=== PATIENT | female | born 1935 | race Asian ===

== ENCOUNTER 2019-05-09 19:19 | Inpatient (IN) | payer MEDICARE, OTHER ==
[~2019-05-09] VITALS: Ht 160 cm; Wt 38.8 kg
[2019-05-09] MEDS ORDERED: ACETAMINOPHEN 325MG TABLET PO ONE (20:45)
[2019-05-09] MEDS ORDERED: MORPHINE SULFATE 2 MG/ML CPJ (NOT FOR IM USE) IV ONE (21:45)
[2019-05-09 22:16] LABS: HEMATOCRIT. 28.9 % (36.0-48.0); HEMOGLOBIN. 9.8 g/dL (12.0-16.0); MEAN CORPUSCULAR HEMOGLOBIN 30.4 pg (28.0-32.0); MEAN CORPUSCULAR VOLUME 89.8 fL (81.0-99.0); MEAN PLATELET VOLUME 7.4 fl (7.4-10.4); PLATELET 277 x1000/uL (130-400); RED BLOOD CELL COUNT 3.22 mill/uL (4.2-5.4); RED CELL DISTRIBUTION WIDTH 14.9 % (11.6-14.6)
[2019-05-09 22:19] LABS: CHLORIDE 103 mEq/L (98-107)
[2019-05-09] MEDS ORDERED: CLONIDINE 0.1MG TABLET PO ONE (22:30)
[2019-05-09 22:33] LABS: PLATELET ESTIMATE NORMAL
[2019-05-09] MEDS ORDERED: POTASSIUM CHLORIDE 20MEQ TABLET SR PO ONE (23:45)
[2019-05-09] MEDS ORDERED: HYDRALAZINE 20MG/ML VIAL IV ONE (23:45)
[2019-05-10 00:59] VITALS: BP 145/67
[2019-05-10 04:00] VITALS: BP 132/68
[2019-05-10] MEDS ORDERED: HYDROCODONE/ACETAMINOPHEN 5/325MG TABLET PO PRN (05:15)
[2019-05-10] MEDS ORDERED: ACETAMINOPHEN 325MG TABLET PO PRN (05:15)
[2019-05-10 08:00] VITALS: BP 143/65
[2019-05-10] MEDS ORDERED: MAGNESIUM/ALUMINUM HYDROXIDE/SIMETHICONE 30ML UDC PO PRN (11:00)
[2019-05-10] MEDS ORDERED: IPRATROPIUM/ALBUTEROL 0.5-3(2.5)MG/3ML NEB NEB PRN (11:00)
[2019-05-10] MEDS ORDERED: DIPHENHYDRAMINE 50MG/ML VIAL IV PRN (11:00)
[2019-05-10] MEDS ORDERED: DOCUSATE SODIUM 100MG CAPSULE PO PRN (11:00)
[2019-05-10] MEDS ORDERED: POTASSIUM CHLORIDE 20MEQ TABLET SR PO NR (11:15)
[2019-05-10] MEDS: AMLODIPINE 2.5MG TABLET PO SCH (11:54)
[2019-05-10 12:00] VITALS: BP 158/72
[2019-05-10 12:47] LABS: BASOPHILS % 0.7 % (0.0-2.0); EOSINOPHILS % 0.3 % (0.0-5.0); HEMATOCRIT. 27.7 % (36.0-48.0); HEMOGLOBIN. 9.5 g/dL (12.0-16.0); LYMPHOCYTES % 9.8 % (20.0-50.0); MEAN CORPUSCULAR HEMOGLOBIN 30.8 pg (28.0-32.0); MEAN PLATELET VOLUME 7.8 fl (7.4-10.4); MONOCYTES % 5.3 % (2.0-8.0); NEUTROPHILS % 83.9 % (40.0-76.0); PLATELET 251 x1000/uL (130-400); RED BLOOD CELL COUNT 3.08 mill/uL (4.2-5.4); RED CELL DISTRIBUTION WIDTH 14.5 % (11.6-14.6)
[2019-05-10 13:00] LABS: CHLORIDE 107 mEq/L (98-107)
[2019-05-10 13:07] LABS: PHOSPHORUS 3.1 mg/dL (2.5-4.9)
[2019-05-10 16:00] VITALS: BP 146/66
[2019-05-10 18:19] LABS: CLARITY URINE CLOUDY (CLEAR); COLOR URINE YELLOW (YELLOW); KETONES URINE TRACE (NEGATIVE); LEUKOCYTE ESTERASE URINE 3+ (NEGATIVE); NITRITE URINE NEGATIVE (NEGATIVE); OCCULT BLOOD URINE 2+ (NEGATIVE); PROTEIN URINE 2+ (NEGATIVE); SPECIFIC GRAVITY URINE 1.013 (1.005-1.030); UROBILINOGEN URINE 0.2 E.U./dL (0.2-1.0)
[2019-05-10 20:00] VITALS: BP 154/64
[2019-05-11] VITALS: BP 166/84
[2019-05-11 00:07] LABS: PROTHROMBIN TIME 10.7 sec (9.6-11.0)
[2019-05-11] MEDS: CLONIDINE 0.1MG TABLET PO PRN (00:31)
[2019-05-11] MEDS: SODIUM CHLORIDE 0.9% 1,000 ML IV SCH (01:51)
[2019-05-11 04:00] VITALS: BP 146/70
[2019-05-11 07:42] LABS: BASOPHILS % 0.8 % (0.0-2.0); EOSINOPHILS % 1.3 % (0.0-5.0); HEMATOCRIT. 26.3 % (36.0-48.0); LYMPHOCYTES % 9.8 % (20.0-50.0); MEAN CORPUSCULAR HEMOGLOBIN 30.6 pg (28.0-32.0); MEAN CORPUSCULAR VOLUME 89.4 fL (81.0-99.0); MEAN PLATELET VOLUME 7.7 fl (7.4-10.4); MONOCYTES % 6.4 % (2.0-8.0); NEUTROPHILS % 81.7 % (40.0-76.0); PLATELET 231 x1000/uL (130-400); RED BLOOD CELL COUNT 2.95 mill/uL (4.2-5.4)
[2019-05-11 08:10] LABS: CHLORIDE 107 mEq/L (98-107)
[2019-05-11 08:18] LABS: PHOSPHORUS 2.9 mg/dL (2.5-4.9)
[2019-05-11] MEDS: AMLODIPINE 2.5MG TABLET PO SCH (10:04)
[2019-05-11] MEDS ORDERED: TRANEXAMIC ACID 1,000 MG in SODIUM CHLORIDE 0.9% 100 ML IV NR ×2 (12:00→13:00)
[2019-05-11] MEDS ORDERED: HYDRALAZINE 20MG/ML VIAL IV ONE (12:00)
[2019-05-11] MEDS ORDERED: HYDRALAZINE 10 MG in SODIUM CHLORIDE 0.9% 49.5 ML IV NR (12:30)
[2019-05-11] MEDS ORDERED: ROPIVACAINE HCL 10MG/ML 20 ML VIAL EPI ONE (13:37)
[2019-05-11] MEDS ORDERED: KETOROLAC 30MG/ML VIAL ONE (13:37)
[2019-05-11] MEDS ORDERED: EPINEPHRINE 1:1000 1 MG/ML AMP ONE (13:37)
[2019-05-11] MEDS ORDERED: BACITRACIN 50,000 UNITS/VIAL ONE (13:38)
[2019-05-11] MEDS ORDERED: VANCOMYCIN HCL 1 GM/VIAL ONE (13:38)
[2019-05-11] MEDS ORDERED: NORMAL SALINE 0.9% 10 ML SYR ONE (13:38)
[2019-05-11] MEDS ORDERED: CEFAZOLIN 1000MG PREMIX 50 ML IV SCH (14:33)
[2019-05-11] MEDS ORDERED: ONDANSETRON HCL 4MG/2ML INJ IV PRN (16:45)
[2019-05-11] MEDS ORDERED: HYDROMORPHONE HCL/PF 2MG/ML CPJ IV PRN (16:45)
[2019-05-11] MEDS ORDERED: KETOROLAC 30MG/ML VIAL IV PRN (16:45)
[2019-05-11] MEDS ORDERED: LABETALOL 5MG/ML SYR 20 MG/4 ML SYRINGE IV PRN (16:45)
[2019-05-11] MEDS ORDERED: MEPERIDINE HCL/PF 25MG/ML CPJ IV PRN (16:45)
[2019-05-11] MEDS: ASPIRIN 81MG TABLET PO SCH (17:00)
[2019-05-11 20:00] VITALS: BP 139/71
[2019-05-11] MEDS: CEFAZOLIN 1000MG PREMIX 50 ML IV SCH (23:07)
[2019-05-12] VITALS: BP 158/73
[2019-05-12 04:00] VITALS: BP 167/78
[2019-05-12] MEDS: CLONIDINE 0.1MG TABLET PO PRN (05:51)
[2019-05-12 07:05] LABS: HEMATOCRIT. 23.5 % (36.0-48.0); MEAN CORPUSCULAR HEMOGLOBIN 30.6 pg (28.0-32.0); MEAN CORPUSCULAR VOLUME 90.1 fL (81.0-99.0); MEAN PLATELET VOLUME 7.8 fl (7.4-10.4); PLATELET 212 x1000/uL (130-400); RED BLOOD CELL COUNT 2.61 mill/uL (4.2-5.4); RED CELL DISTRIBUTION WIDTH 14.7 % (11.6-14.6)
[2019-05-12] MEDS: SODIUM CHLORIDE 0.9% 1,000 ML IV SCH ×2 (07:46→17:20)
[2019-05-12] MEDS: CEFAZOLIN 1000MG PREMIX 50 ML IV SCH ×2 (07:51→15:53)
[2019-05-12 08:00] VITALS: BP 113/51
[2019-05-12] MEDS: ASPIRIN 81MG TABLET PO SCH ×2 (08:27→17:47)
[2019-05-12] MEDS: AMLODIPINE 2.5MG TABLET PO SCH (08:27)
[2019-05-12 08:34] LABS: PLATELET ESTIMATE NORMAL
[2019-05-12] MEDS: TRANEXAMIC ACID 1,000 MG/10 ML IV SCH (11:27)
[2019-05-12 12:00] VITALS: BP 127/58
[2019-05-12 16:00] VITALS: BP 143/56
[2019-05-12] MEDS ORDERED: HYDROCODONE/ACETAMINOPHEN 10/325MG TABLET PO PRN (16:47)
[2019-05-12] MEDS ORDERED: HYDROCODONE/ACETAMINOPHEN 5/325MG TABLET PO PRN (16:47)
[2019-05-12 20:00] VITALS: BP 143/69
[2019-05-13] VITALS: BP 149/69
[2019-05-13] MEDS: CEFAZOLIN 1000MG PREMIX 50 ML IV SCH ×3 (01:05→14:52)
[2019-05-13 04:00] VITALS: BP 149/63
[2019-05-13 07:08] LABS: BASOPHILS % 0.5 % (0.0-2.0); EOSINOPHILS % 0.7 % (0.0-5.0); HEMATOCRIT. 21.3 % (36.0-48.0); HEMOGLOBIN. 7.3 g/dL (12.0-16.0); LYMPHOCYTES % 14.9 % (20.0-50.0); MEAN CORPUSCULAR HEMOGLOBIN 31.2 pg (28.0-32.0); MEAN CORPUSCULAR VOLUME 90.7 fL (81.0-99.0); MEAN PLATELET VOLUME 7.9 fl (7.4-10.4); MONOCYTES % 8.2 % (2.0-8.0); NEUTROPHILS % 75.7 % (40.0-76.0); PLATELET 214 x1000/uL (130-400); RED BLOOD CELL COUNT 2.35 mill/uL (4.2-5.4); RED CELL DISTRIBUTION WIDTH 14.3 % (11.6-14.6)
[2019-05-13 07:26] LABS: CHLORIDE 108 mEq/L (98-107)
[2019-05-13 08:00] VITALS: BP 150/94
[2019-05-13] MEDS: AMLODIPINE 2.5MG TABLET PO SCH (09:21)
[2019-05-13] MEDS: ASPIRIN 81MG TABLET PO SCH (09:21)
[2019-05-13 12:00] VITALS: BP 133/68
[2019-05-13] MEDS: TRANEXAMIC ACID 1,000 MG/10 ML IV SCH (12:00)
[2019-05-13] MEDS ORDERED: POTASSIUM CHLORIDE 20MEQ TABLET SR PO SCH (12:15)
[2019-05-13 15:33] LABS: HEMATOCRIT 22.8 % (36.0-48.0); HEMOGLOBIN 7.9 g/dL (12.0-16.0)
[2019-05-13 16:00] VITALS: BP 126/59
[2019-05-13 16:47] VITALS: BP 126/59
[2019-05-14] MEDS ORDERED: AMLODIPINE 5MG TABLET PO SCH (09:00)
== END 2019-05-13 17:35 | DRG 470 ==
LOC: ER 19:19 → 6EST 22:13 → ENRESERV 23:08
PROVIDERS: ADMIT Family Medicine Adult Medicine; ATTEND Family Medicine Adult Medicine
PROC: 0SRB0JZ Replacement of Left Hip Joint with Synthetic Substitute, Open Approach (ICD-10-PCS; principal; 2019-05-11)
DX: S72.002A Fracture of unspecified part of neck of left femur, initial encounter for closed fracture (principal); E46 Unspecified protein-calorie malnutrition; E78.5 Hyperlipidemia, unspecified; I10 Essential (primary) hypertension; E87.6 Hypokalemia; J44.9 Chronic obstructive pulmonary disease, unspecified; D72.829 Elevated white blood cell count, unspecified; D64.9 Anemia, unspecified; R73.9 Hyperglycemia, unspecified; W18.39XA Other fall on same level, initial encounter; Y93.89 Activity, other specified; Z88.8 Allergy status to other drugs, medicaments and biological substances; Z86.79 Personal history of other diseases of the circulatory system; Y92.89 Other specified places as the place of occurrence of the external cause; Y99.8 Other external cause status
CPT/HCPCS: 36415; 71045; 73501; 73502; 73552; 76000; 80048; 81003; 83735; 84100; 84484; 85014; 85018; 86850; 86900; 88305; 88311; 93005; 93970; 97110; 97116; 97162; 99285; C1776; J0360; J0690; J1885; J2270; J2795; J3370; J3490; J7030; J7050; A4315

== ENCOUNTER 2019-05-13 17:33 | Inpatient (IN) | payer MEDICARE, OTHER ==
[~2019-05-13] VITALS: Ht 160 cm; Wt 38.6 kg
[2019-05-13 20:00] VITALS: BP 138/58
[2019-05-13] MEDS ORDERED: DIPHENHYDRAMINE 25MG CAPSULE PO PRN (20:30)
[2019-05-13] MEDS ORDERED: MAGNESIUM/ALUMINUM HYDROXIDE/SIMETHICONE 30ML UDC PO PRN (20:30)
[2019-05-13] MEDS ORDERED: HYDROCODONE/ACETAMINOPHEN 10/325MG TABLET PO PRN (20:30)
[2019-05-13] MEDS ORDERED: HYDROCODONE/ACETAMINOPHEN 5/325MG TABLET PO PRN (20:30)
[2019-05-13] MEDS ORDERED: ACETAMINOPHEN 325MG TABLET PO PRN (20:30)
[2019-05-13] MEDS ORDERED: IPRATROPIUM/ALBUTEROL 0.5-3(2.5)MG/3ML NEB HHN PRN (20:30)
[2019-05-13] MEDS ORDERED: CEFAZOLIN 1000MG PREMIX 50 ML IV SCH (22:30)
[2019-05-14] MEDS: SODIUM CHLORIDE 0.9% 1,000 ML IV SCH ×2 (00:33→12:36)
[2019-05-14 08:00] VITALS: BP 160/66
[2019-05-14] MEDS: ASPIRIN 81MG TABLET PO SCH ×2 (08:55→17:58)
[2019-05-14] MEDS: AMLODIPINE 2.5MG TABLET PO SCH (08:55)
[2019-05-14 09:29] LABS: BASOPHILS % 0.7 % (0.0-2.0); EOSINOPHILS % 1.9 % (0.0-5.0); HEMATOCRIT. 21.7 % (36.0-48.0); HEMOGLOBIN. 7.4 g/dL (12.0-16.0); LYMPHOCYTES % 13.3 % (20.0-50.0); MEAN CORPUSCULAR HEMOGLOBIN 30.7 pg (28.0-32.0); MEAN CORPUSCULAR VOLUME 89.6 fL (81.0-99.0); MEAN PLATELET VOLUME 7.5 fl (7.4-10.4); MONOCYTES % 7.2 % (2.0-8.0); NEUTROPHILS % 76.9 % (40.0-76.0); PLATELET 258 x1000/uL (130-400); RED BLOOD CELL COUNT 2.42 mill/uL (4.2-5.4); RED CELL DISTRIBUTION WIDTH 14.2 % (11.6-14.6)
[2019-05-14 09:38] LABS: CHLORIDE 109 mEq/L (98-107)
[2019-05-14] MEDS: DOCUSATE SODIUM 100MG CAPSULE PO PRN (11:31)
[2019-05-14] MEDS ORDERED: POTASSIUM CHLORIDE 20MEQ TABLET SR PO SCH (12:15)
[2019-05-14 14:31] LABS: CLARITY URINE CLEAR (CLEAR); COLOR URINE YELLOW (YELLOW); KETONES URINE NEGATIVE (NEGATIVE); LEUKOCYTE ESTERASE URINE TRACE (NEGATIVE); NITRITE URINE NEGATIVE (NEGATIVE); OCCULT BLOOD URINE 2+ (NEGATIVE); PROTEIN URINE 1+ (NEGATIVE); SPECIFIC GRAVITY URINE 1.008 (1.005-1.030); UROBILINOGEN URINE 0.2 E.U./dL (0.2-1.0)
[2019-05-14] MEDS: LACTULOSE 20G/30ML UDC PO SCH ×3 (15:46→21:00)
[2019-05-14 20:00] VITALS: BP 150/71
[2019-05-14 22:03] LABS: CHLORIDE 108 mEq/L (98-107)
[2019-05-14 22:04] LABS: BASOPHILS % 0.6 % (0.0-2.0); EOSINOPHILS % 2.1 % (0.0-5.0); HEMATOCRIT. 24.2 % (36.0-48.0); HEMOGLOBIN. 8.4 g/dL (12.0-16.0); LYMPHOCYTES % 11.1 % (20.0-50.0); MEAN CORPUSCULAR HEMOGLOBIN 30.8 pg (28.0-32.0); MEAN CORPUSCULAR VOLUME 89.1 fL (81.0-99.0); MEAN PLATELET VOLUME 7.4 fl (7.4-10.4); MONOCYTES % 7.1 % (2.0-8.0); NEUTROPHILS % 79.1 % (40.0-76.0); PLATELET 357 x1000/uL (130-400); RED BLOOD CELL COUNT 2.72 mill/uL (4.2-5.4); RED CELL DISTRIBUTION WIDTH 14.2 % (11.6-14.6)
[2019-05-15] MEDS: SODIUM CHLORIDE 0.9% 1,000 ML IV SCH (04:49)
[2019-05-15 08:00] VITALS: BP 133/68
[2019-05-15] MEDS: ASPIRIN 81MG TABLET PO SCH ×2 (08:39→16:28)
[2019-05-15] MEDS: AMLODIPINE 2.5MG TABLET PO SCH (08:39)
[2019-05-15 09:06] LABS: BASOPHILS % 0.6 % (0.0-2.0); EOSINOPHILS % 1.5 % (0.0-5.0); HEMATOCRIT. 22.3 % (36.0-48.0); HEMOGLOBIN. 7.8 g/dL (12.0-16.0); LYMPHOCYTES % 13.1 % (20.0-50.0); MEAN CORPUSCULAR HEMOGLOBIN 31.2 pg (28.0-32.0); MEAN CORPUSCULAR VOLUME 89.2 fL (81.0-99.0); MEAN PLATELET VOLUME 7.3 fl (7.4-10.4); MONOCYTES % 6.4 % (2.0-8.0); NEUTROPHILS % 78.4 % (40.0-76.0); PLATELET 344 x1000/uL (130-400); RED CELL DISTRIBUTION WIDTH 14.2 % (11.6-14.6)
[2019-05-15 09:13] LABS: CHLORIDE 106 mEq/L (98-107)
[2019-05-15 09:18] LABS: PHOSPHORUS 2.4 mg/dL (2.5-4.9); TOTAL IRON BINDING CAPACITY 139 ug/dL (250-450)
[2019-05-15 09:32] LABS: FOLIC ACID (FOLATE) SERUM 5.7 ng/mL (>5.38)
[2019-05-15] MEDS ORDERED: POTASSIUM-SODIUM PHOSPHATE POWDER PACKET PO NR (15:00)
[2019-05-15 20:00] VITALS: BP 102/60
[2019-05-15] MEDS: IRON SUCROSE COMPLEX 100 MG in SODIUM CHLORIDE 0.9% 100 ML IV SCH (22:10)
[2019-05-16] VITALS (10 sets, daily range): BP systolic 107–155; BP diastolic 59–89
[2019-05-16 06:59] LABS: BASOPHILS % 1.2 % (0.0-2.0); EOSINOPHILS % 4.9 % (0.0-5.0); LYMPHOCYTES % 20.3 % (20.0-50.0); MEAN CORPUSCULAR HEMOGLOBIN 31.1 pg (28.0-32.0); MEAN CORPUSCULAR VOLUME 88.8 fL (81.0-99.0); MONOCYTES % 8.4 % (2.0-8.0); NEUTROPHILS % 65.2 % (40.0-76.0); PLATELET 343 x1000/uL (130-400); RED BLOOD CELL COUNT 2.25 mill/uL (4.2-5.4)
[2019-05-16 07:32] LABS: VITAMIN B12 SERUM 283 pg/mL (211-911)
[2019-05-16 07:33] LABS: HEMATOCRIT. 19.9 % (36.0-48.0)
[2019-05-16] MEDS: AMLODIPINE 2.5MG TABLET PO SCH (08:34)
[2019-05-16] MEDS: ASPIRIN 81MG TABLET PO SCH ×2 (08:34→16:10)
[2019-05-16] MEDS: DOCUSATE SODIUM 100MG CAPSULE PO PRN (16:10)
[2019-05-16] MEDS: CYANOCOBALAMIN 1000MCG/ML VIAL IM SCH (16:20)
[2019-05-16] MEDS: IRON SUCROSE COMPLEX 100 MG in SODIUM CHLORIDE 0.9% 100 ML IV SCH (21:00)
[2019-05-16 21:04] LABS: HEMATOCRIT 25.6 % (36.0-48.0)
[2019-05-17 08:24] VITALS: BP 141/65
[2019-05-17] MEDS: AMLODIPINE 2.5MG TABLET PO SCH (09:11)
[2019-05-17] MEDS: ASPIRIN 81MG TABLET PO SCH ×2 (09:11→16:18)
[2019-05-17] MEDS: CYANOCOBALAMIN 1000MCG/ML VIAL IM SCH (10:15)
[2019-05-17 12:40] LABS: BASOPHILS % 0.8 % (0.0-2.0); EOSINOPHILS % 3.3 % (0.0-5.0); HEMATOCRIT. 26.1 % (36.0-48.0); HEMOGLOBIN. 9.1 g/dL (12.0-16.0); LYMPHOCYTES % 14.5 % (20.0-50.0); MEAN CORPUSCULAR HEMOGLOBIN 30.5 pg (28.0-32.0); MEAN CORPUSCULAR VOLUME 87.8 fL (81.0-99.0); MEAN PLATELET VOLUME 6.6 fl (7.4-10.4); MONOCYTES % 7.4 % (2.0-8.0); PLATELET 407 x1000/uL (130-400); RED BLOOD CELL COUNT 2.97 mill/uL (4.2-5.4); RED CELL DISTRIBUTION WIDTH 14.1 % (11.6-14.6)
[2019-05-17 12:48] LABS: CHLORIDE 105 mEq/L (98-107)
[2019-05-17] MEDS: LACTULOSE 20G/30ML UDC PO SCH ×2 (16:57→21:19)
[2019-05-17 20:00] VITALS: BP 146/68
[2019-05-17] MEDS: IRON SUCROSE COMPLEX 100 MG in SODIUM CHLORIDE 0.9% 100 ML IV SCH (21:19)
[2019-05-18 07:00] LABS: CHLORIDE 103 mEq/L (98-107)
[2019-05-18 07:09] LABS: BASOPHILS % 1.3 % (0.0-2.0); EOSINOPHILS % 4.5 % (0.0-5.0); HEMATOCRIT. 27.2 % (36.0-48.0); HEMOGLOBIN. 9.3 g/dL (12.0-16.0); LYMPHOCYTES % 21.2 % (20.0-50.0); MEAN CORPUSCULAR HEMOGLOBIN 30.2 pg (28.0-32.0); MEAN CORPUSCULAR VOLUME 88.4 fL (81.0-99.0); MEAN PLATELET VOLUME 6.8 fl (7.4-10.4); MONOCYTES % 8.7 % (2.0-8.0); NEUTROPHILS % 64.3 % (40.0-76.0); PLATELET 459 x1000/uL (130-400); RED BLOOD CELL COUNT 3.08 mill/uL (4.2-5.4); RED CELL DISTRIBUTION WIDTH 13.8 % (11.6-14.6)
[2019-05-18 08:30] VITALS: BP 155/73
[2019-05-18] MEDS: LACTULOSE 20G/30ML UDC PO SCH ×3 (09:21→16:47)
[2019-05-18] MEDS: ASPIRIN 81MG TABLET PO SCH ×2 (09:21→16:47)
[2019-05-18] MEDS: AMLODIPINE 2.5MG TABLET PO SCH (09:21)
[2019-05-18] MEDS: CYANOCOBALAMIN 1000MCG/ML VIAL IM SCH (09:21)
[2019-05-18] MEDS ORDERED: POTASSIUM CHLORIDE 20MEQ TABLET SR PO SCH (10:45)
[2019-05-18 13:11] LABS: 25-HYDROXY VITAMIN D3 26 ng/mL (.)
[2019-05-18] MEDS ORDERED: LACTULOSE 20G/30ML UDC PO SCH (19:10)
[2019-05-18 20:00] VITALS: BP 156/74
[2019-05-18] MEDS: IRON SUCROSE COMPLEX 100 MG in SODIUM CHLORIDE 0.9% 100 ML IV SCH (22:15)
[2019-05-19] MEDS ORDERED: HYDROCODONE/ACETAMINOPHEN 5/325MG TABLET PO PRN (06:45)
[2019-05-19] MEDS ORDERED: HYDROCODONE/ACETAMINOPHEN 10/325MG TABLET PO PRN (06:45)
[2019-05-19 08:00] VITALS: BP 161/63
[2019-05-19] MEDS: CYANOCOBALAMIN 1000MCG/ML VIAL IM SCH (10:03)
[2019-05-19] MEDS: ASPIRIN 81MG TABLET PO SCH ×2 (10:03→17:38)
[2019-05-19] MEDS: AMLODIPINE 2.5MG TABLET PO SCH (10:04)
[2019-05-19 10:56] LABS: BASOPHILS % 1.3 % (0.0-2.0); EOSINOPHILS % 3.7 % (0.0-5.0); HEMATOCRIT. 29.6 % (36.0-48.0); HEMOGLOBIN. 10.2 g/dL (12.0-16.0); LYMPHOCYTES % 20.5 % (20.0-50.0); MEAN CORPUSCULAR HEMOGLOBIN 30.8 pg (28.0-32.0); MONOCYTES % 8.3 % (2.0-8.0); NEUTROPHILS % 66.2 % (40.0-76.0); PLATELET 628 x1000/uL (130-400); RED BLOOD CELL COUNT 3.32 mill/uL (4.2-5.4)
[2019-05-19] MEDS: DOCUSATE SODIUM 100MG CAPSULE PO SCH ×2 (11:00→11:50)
[2019-05-19] MEDS: POLYETHYLENE GLYCOL 3350 (17GM) 1 DOSE PACK PO SCH ×2 (11:00→11:50)
[2019-05-19 11:24] LABS: CHLORIDE 103 mEq/L (98-107)
[2019-05-19 11:29] LABS: PHOSPHORUS 3.1 mg/dL (2.5-4.9)
[2019-05-19 20:00] VITALS: BP 149/73
[2019-05-19] MEDS: IRON SUCROSE COMPLEX 100 MG in SODIUM CHLORIDE 0.9% 100 ML IV SCH (20:43)
[2019-05-20 08:00] VITALS: BP 144/71
[2019-05-20] MEDS: CYANOCOBALAMIN 1000MCG/ML VIAL IM SCH (08:09)
[2019-05-20] MEDS: ASPIRIN 81MG TABLET PO SCH ×2 (08:09→16:39)
[2019-05-20] MEDS: AMLODIPINE 2.5MG TABLET PO SCH (08:11)
[2019-05-20] MEDS: ASCORBIC ACID 250 MG TABLET PO SCH ×2 (10:15→22:28)
[2019-05-20] MEDS: FERROUS SULFATE 325MG TABLET PO SCH ×2 (12:18→16:39)
[2019-05-20 20:00] VITALS: BP 143/63
[2019-05-21 08:00] VITALS: BP 144/63
[2019-05-21] MEDS: ASCORBIC ACID 250 MG TABLET PO SCH ×2 (08:08→20:32)
[2019-05-21] MEDS: ASPIRIN 81MG TABLET PO SCH ×2 (08:08→16:14)
[2019-05-21] MEDS: FERROUS SULFATE 325MG TABLET PO SCH ×3 (08:08→16:14)
[2019-05-21] MEDS: CYANOCOBALAMIN 1000MCG/ML VIAL IM SCH (08:08)
[2019-05-21] MEDS: AMLODIPINE 2.5MG TABLET PO SCH (08:09)
[2019-05-21] MEDS ORDERED: LACTULOSE 20G/30ML UDC PO SCH (16:00)
[2019-05-21 20:00] VITALS: BP 130/57
[2019-05-22 07:26] LABS: BASOPHILS % 1.2 % (0.0-2.0); EOSINOPHILS % 3.4 % (0.0-5.0); HEMATOCRIT. 29.1 % (36.0-48.0); HEMOGLOBIN. 9.9 g/dL (12.0-16.0); LYMPHOCYTES % 22.5 % (20.0-50.0); MEAN CORPUSCULAR HEMOGLOBIN 30.6 pg (28.0-32.0); MEAN PLATELET VOLUME 6.7 fl (7.4-10.4); MONOCYTES % 8.1 % (2.0-8.0); NEUTROPHILS % 64.8 % (40.0-76.0); PLATELET 636 x1000/uL (130-400); RED BLOOD CELL COUNT 3.23 mill/uL (4.2-5.4); RED CELL DISTRIBUTION WIDTH 14.2 % (11.6-14.6)
[2019-05-22 07:58] LABS: CHLORIDE 102 mEq/L (98-107)
[2019-05-22 08:00] VITALS: BP 143/69
[2019-05-22 08:10] LABS: PHOSPHORUS 2.8 mg/dL (2.5-4.9)
[2019-05-22] MEDS: CYANOCOBALAMIN 1000MCG/ML VIAL IM SCH (09:57)
[2019-05-22] MEDS: ASPIRIN 81MG TABLET PO SCH ×2 (09:57→16:29)
[2019-05-22] MEDS: AMLODIPINE 2.5MG TABLET PO SCH (09:57)
[2019-05-22] MEDS: FERROUS SULFATE 325MG TABLET PO SCH ×3 (09:57→16:29)
[2019-05-22] MEDS: ASCORBIC ACID 250 MG TABLET PO SCH ×2 (09:57→20:42)
[2019-05-22 20:00] VITALS: BP 153/73
[2019-05-23 08:00] VITALS: BP 142/62
[2019-05-23] MEDS: FERROUS SULFATE 325MG TABLET PO SCH ×3 (09:01→16:07)
[2019-05-23] MEDS: AMLODIPINE 2.5MG TABLET PO SCH (09:01)
[2019-05-23] MEDS: ASPIRIN 81MG TABLET PO SCH ×2 (09:01→16:07)
[2019-05-23] MEDS: ASCORBIC ACID 250 MG TABLET PO SCH ×2 (09:01→21:00)
[2019-05-23 20:00] VITALS: BP 133/63
[2019-05-24 08:00] VITALS: BP 147/74
[2019-05-24] MEDS: AMLODIPINE 2.5MG TABLET PO SCH (09:11)
[2019-05-24] MEDS: ASPIRIN 81MG TABLET PO SCH ×2 (09:11→16:21)
[2019-05-24] MEDS: FERROUS SULFATE 325MG TABLET PO SCH ×3 (09:11→16:21)
[2019-05-24] MEDS: ASCORBIC ACID 250 MG TABLET PO SCH ×2 (09:11→21:00)
[2019-05-24] MEDS: LACTULOSE 20G/30ML UDC PO SCH ×3 (16:00→21:00)
[2019-05-24 20:00] VITALS: BP 128/58
[2019-05-25 07:23] LABS: BASOPHILS % 1.6 % (0.0-2.0); EOSINOPHILS % 3.6 % (0.0-5.0); HEMATOCRIT. 27.8 % (36.0-48.0); HEMOGLOBIN. 9.5 g/dL (12.0-16.0); MEAN CORPUSCULAR HEMOGLOBIN 30.9 pg (28.0-32.0); MEAN CORPUSCULAR VOLUME 90.5 fL (81.0-99.0); MEAN PLATELET VOLUME 6.9 fl (7.4-10.4); MONOCYTES % 5.5 % (2.0-8.0); NEUTROPHILS % 64.3 % (40.0-76.0); PLATELET 554 x1000/uL (130-400); RED BLOOD CELL COUNT 3.07 mill/uL (4.2-5.4); RED CELL DISTRIBUTION WIDTH 15.1 % (11.6-14.6)
[2019-05-25 07:56] LABS: CHLORIDE 102 mEq/L (98-107)
[2019-05-25 08:03] LABS: PHOSPHORUS 3.1 mg/dL (2.5-4.9)
[2019-05-25] MEDS: POLYETHYLENE GLYCOL 3350 (17GM) 1 DOSE PACK PO SCH (08:12)
[2019-05-25] MEDS: ASPIRIN 81MG TABLET PO SCH ×2 (08:13→16:20)
[2019-05-25] MEDS: ASCORBIC ACID 250 MG TABLET PO SCH ×2 (08:13→21:21)
[2019-05-25] MEDS: FERROUS SULFATE 325MG TABLET PO SCH ×3 (08:13→16:20)
[2019-05-25] MEDS: AMLODIPINE 2.5MG TABLET PO SCH (08:13)
[2019-05-25 08:34] VITALS: BP 138/63
[2019-05-25 20:00] VITALS: BP 125/57
[2019-05-25] MEDS ORDERED: NA PHOS,M-B/NA PHOS,DI-BA ENEMA 118ML PR NR (21:15)
[2019-05-26 07:51] VITALS: BP 120/58
[2019-05-26 08:00] VITALS: BP 120/58
[2019-05-26] MEDS: ASCORBIC ACID 250 MG TABLET PO SCH (10:51)
[2019-05-26] MEDS: AMLODIPINE 2.5MG TABLET PO SCH (10:51)
[2019-05-26] MEDS: FERROUS SULFATE 325MG TABLET PO SCH ×2 (10:51→13:20)
[2019-05-26] MEDS: POLYETHYLENE GLYCOL 3350 (17GM) 1 DOSE PACK PO SCH (10:52)
[2019-05-26] MEDS: ASPIRIN 81MG TABLET PO SCH (10:52)
[2019-05-29] MEDS ORDERED: CYANOCOBALAMIN 1000MCG/ML VIAL IM SCH (09:00)
== END 2019-05-26 15:45 | disposition home health service (06) | DRG 536 ==
PROVIDERS: ADMIT Physical Medicine & Rehabilitation Spinal Cord Injury Medicine; ATTEND Family Medicine Adult Medicine
PROC: 30233N1 Transfusion of Nonautologous Red Blood Cells into Peripheral Vein, Percutaneous Approach (ICD-10-PCS; principal; 2019-05-16)
DX: S72.012A Unspecified intracapsular fracture of left femur, initial encounter for closed fracture (principal); E46 Unspecified protein-calorie malnutrition; E87.1 Hypo-osmolality and hyponatremia; Z68.1 Body mass index [BMI] 19.9 or less, adult; J44.9 Chronic obstructive pulmonary disease, unspecified; I10 Essential (primary) hypertension; E87.6 Hypokalemia; E78.5 Hyperlipidemia, unspecified; D64.9 Anemia, unspecified; Z96.642 Presence of left artificial hip joint; D50.9 Iron deficiency anemia, unspecified; F06.31 Mood disorder due to known physiological condition with depressive features; K59.00 Constipation, unspecified; W01.0XXA Fall on same level from slipping, tripping and stumbling without subsequent striking against object, initial encounter; R73.9 Hyperglycemia, unspecified; R26.9 Unspecified abnormalities of gait and mobility; R53.81 Other malaise; Z82.49 Family history of ischemic heart disease and other diseases of the circulatory system; Z86.79 Personal history of other diseases of the circulatory system; X50.0XXA Overexertion from strenuous movement or load, initial encounter; Y92.89 Other specified places as the place of occurrence of the external cause; Y99.8 Other external cause status
CPT/HCPCS: 36415; 80048; 81003; 82270; 82306; 82607; 82728; 82746; 83540; 83550; 83735; 84100; 84134; 84443; 85014; 85018; 86850; 86900; 86920; 92523; 93970; 97110; 97112; 97116; 97162; 97166; 97530; 97535; A6261; C1893; J0690; J3420; J7030; J7040; J7050; P9016

== ENCOUNTER 2022-03-15 20:43 | Inpatient (IN) | payer MEDICARE, OTHER ==
[~2022-03-15] VITALS: Ht 157.5 cm; Wt 29.9 kg
[2022-03-15] MEDS ORDERED: SODIUM CHLORIDE 0.9% 1,000 ML IV ONE ×2 (22:00→23:45)
[2022-03-15] MEDS ORDERED: PANTOPRAZOLE SODIUM 40 MG/VIAL IV ONE (22:00)
[2022-03-15] MEDS ORDERED: CEFTRIAXONE 1 G PREMIX 50 ML IV ONE (22:30)
[2022-03-15 22:59] LABS: HEMOGLOBIN. 12.8 g/dL (12.0-16.0); MEAN CORPUSCULAR HEMOGLOBIN 32.1 pg (28.0-32.0); MEAN CORPUSCULAR VOLUME 94.7 fL (81.0-99.0); MEAN PLATELET VOLUME 8.1 fl (7.4-10.4); PLATELET 331 x1000/uL (130-400); RED BLOOD CELL COUNT 4.01 mill/uL (4.2-5.4); RED CELL DISTRIBUTION WIDTH 13.2 % (11.6-14.6)
[2022-03-15 23:07] LABS: CHLORIDE 102 mEq/L (98-107)
[2022-03-15 23:22] LABS: CREATINE KINASE 120 IU/L (26-192); ETHANOL BLOOD < 10 mg/dL
[2022-03-15 23:23] LABS: PLATELET ESTIMATE NORMAL
[2022-03-15] MEDS ORDERED: ASPIRIN 325MG EC TABLET PO NR (23:45)
[2022-03-15 23:54] LABS: CLARITY URINE CLOUDY (CLEAR); COLOR URINE YELLOW (YELLOW); KETONES URINE NEGATIVE (NEGATIVE); LEUKOCYTE ESTERASE URINE 3+ (NEGATIVE); NITRITE URINE NEGATIVE (NEGATIVE); OCCULT BLOOD URINE 1+ (NEGATIVE); PROTEIN URINE 2+ (NEGATIVE); SPECIFIC GRAVITY URINE 1.016 (1.005-1.030); UROBILINOGEN URINE 0.2 E.U./dL (0.2-1.0)
[2022-03-16] MEDS ORDERED: DOCUSATE SODIUM 100MG CAPSULE PO PRN
[2022-03-16] MEDS ORDERED: ACETAMINOPHEN 650MG SUPP PR PRN ×2
[2022-03-16] MEDS ORDERED: ACETAMINOPHEN 325MG TABLET PO PRN ×2
[2022-03-16] MEDS ORDERED: MAGNESIUM/ALUMINUM HYDROXIDE/SIMETHICONE 30ML UDC PO PRN
[2022-03-16] MEDS ORDERED: ONDANSETRON HCL 4MG/2ML INJ IV PRN
[2022-03-16] MEDS ORDERED: IPRATROPIUM/ALBUTEROL 0.5-3(2.5)MG/3ML NEB HHN PRN
[2022-03-16] MEDS ORDERED: GUAIFENESIN 200MG/10ML SUGAR FREE UDC PO PRN
[2022-03-16 00:21] LABS: *AMPHETAMINES SCREEN URINE NEGATIVE (NEGATIVE); *BARBITURATES SCREEN URINE NEGATIVE (NEGATIVE); *BENZODIAZEPINES SCREEN URINE NEGATIVE (NEGATIVE); *COCAINE SCREEN URINE NEGATIVE (NEGATIVE); CANNABINOID URINE SCREEN NEGATIVE (NEGATIVE); METHADONE URINE SCREEN NEGATIVE (NEGATIVE); OPIATES URINE SCREEN NEGATIVE (NEGATIVE); PHENCYCLIDINE URINE SCREEN NEGATIVE (NEGATIVE)
[2022-03-16] MEDS: AMLODIPINE 10MG TABLET PO SCH ×2 (01:55→09:00)
[2022-03-16 05:42] LABS: BASOPHILS % 0.1 % (0.0-2.0); EOSINOPHILS % 0.2 % (0.0-5.0); HEMATOCRIT. 34.3 % (36.0-48.0); HEMOGLOBIN. 11.7 g/dL (12.0-16.0); LYMPHOCYTES % 8.4 % (20.0-50.0); MEAN CORPUSCULAR HEMOGLOBIN 32.6 pg (28.0-32.0); MEAN CORPUSCULAR VOLUME 95.7 fL (81.0-99.0); MEAN PLATELET VOLUME 7.6 fl (7.4-10.4); MONOCYTES % 6.5 % (2.0-8.0); NEUTROPHILS % 84.8 % (40.0-76.0); PLATELET 306 x1000/uL (130-400); RED BLOOD CELL COUNT 3.59 mill/uL (4.2-5.4); RED CELL DISTRIBUTION WIDTH 13.7 % (11.6-14.6)
[2022-03-16 05:48] LABS: CHLORIDE 109 mEq/L (98-107)
[2022-03-16 06:07] LABS: CREATINE KINASE 96 IU/L (26-192); HDL CHOLESTEROL 91 mg/dL (40-59); LDL CHOLESTEROL 80 mg/dL (5-100)
[2022-03-16] MEDS ORDERED: KCL 20MEQ/100ML PREMIX 100 ML IV NR (09:15)
[2022-03-16] MEDS: SODIUM CHLORIDE 0.45% 1,000 ML IV SCH (09:20)
[2022-03-16] MEDS ORDERED: NALOXONE HCL 0.4MG/ML VIAL IV PRN (10:45)
[2022-03-16] MEDS ORDERED: CEFTRIAXONE 1 G PREMIX 50 ML IV SCH (11:30)
[2022-03-16] MEDS ORDERED: DIATR MEGLU/DIATRIZOATE SOLN 30ML PO SCH (16:30)
[2022-03-16] MEDS ORDERED: CEFTRIAXONE 1 G PREMIX 50 ML IV NR (16:45)
[2022-03-16 22:00] VITALS: BP 98/59
[2022-03-17] VITALS: BP 100/54
[2022-03-17] MEDS: MORPHINE SULFATE 2 MG/ML CPJ (NOT FOR IM USE) IV PRN (02:55)
[2022-03-17] MEDS: SODIUM CHLORIDE 0.45% 1,000 ML IV SCH ×2 (02:55→18:35)
[2022-03-17 04:00] VITALS: BP 103/52
[2022-03-17 06:31] LABS: HEMATOCRIT. 26.4 % (36.0-48.0); HEMOGLOBIN. 9.3 g/dL (12.0-16.0); MEAN CORPUSCULAR HEMOGLOBIN 32.9 pg (28.0-32.0); MEAN CORPUSCULAR VOLUME 93.5 fL (81.0-99.0); MEAN PLATELET VOLUME 7.9 fl (7.4-10.4); PLATELET 295 x1000/uL (130-400); RED BLOOD CELL COUNT 2.82 mill/uL (4.2-5.4); RED CELL DISTRIBUTION WIDTH 13.4 % (11.6-14.6)
[2022-03-17 08:00] VITALS: BP 93/54
[2022-03-17] MEDS: AMLODIPINE 10MG TABLET PO SCH (09:00)
[2022-03-17 12:00] VITALS: BP 99/62
[2022-03-17] MEDS: CEFTRIAXONE 1,000 MG in DEXTROSE 5% WATER 50 ML IV SCH (13:56)
[2022-03-17 16:00] VITALS: BP 98/54
[2022-03-17 16:16] LABS: TOTAL IRON BINDING CAPACITY 143 ug/dL (250-450)
[2022-03-17 16:21] LABS: INR 1.1; PROTHROMBIN TIME 11.4 sec (9.6-11.0)
[2022-03-17 16:41] LABS: FOLIC ACID (FOLATE) SERUM >20 ng/mL ng/mL (>5.38); VITAMIN B12 SERUM 1802 pg/mL (211-911)
[2022-03-17 16:44] LABS: FERRITIN 234 ng/mL (10-291)
[2022-03-17] MEDS ORDERED: IOHEXOL-300 100 ML BOTTLE ONE (18:34)
[2022-03-17 20:00] VITALS: BP 99/59
[2022-03-17] MEDS ORDERED: VASOPRESSIN 20 UNIT in SODIUM CHLORIDE 0.9% 99 ML IV PRN (20:30)
[2022-03-17] MEDS ORDERED: ALPR-340 PO (20:45)
[2022-03-17] MEDS ORDERED: SIMV-43 PO (20:46)
[2022-03-17] MEDS ORDERED: LISI20TA31 PO (20:46)
[2022-03-17] MEDS ORDERED: LORA10TA7 PO (20:46)
[2022-03-17] MEDS ORDERED: OMEP20TA23 PO (20:47)
[2022-03-17] MEDS ORDERED: ERGO1250 PO (20:48)
[2022-03-17] MEDS ORDERED: DOCU-347 PO (20:49)
[2022-03-18] VITALS (50 sets, daily range): BP systolic 54–195; BP diastolic 25–112
[2022-03-18] MEDS: METRONIDAZOLE 500 MG PREMIX 100 ML IV SCH ×4 (00:04→21:45)
[2022-03-18] MEDS: CLONIDINE 0.1MG TABLET PO PRN ×2 (04:48→04:52)
[2022-03-18] MEDS ORDERED: LIDOCAINE HCL 1% 30ML VIAL (10MG/ML) ONE (07:59)
[2022-03-18 08:02] LABS: PROTHROMBIN TIME 10.9 sec (9.6-11.0)
[2022-03-18 08:30] LABS: BASOPHILS % 0.3 % (0.0-2.0); EOSINOPHILS % 0.6 % (0.0-5.0); HEMATOCRIT. 40.6 % (36.0-48.0); HEMOGLOBIN. 13.6 g/dL (12.0-16.0); LYMPHOCYTES % 9.8 % (20.0-50.0); MEAN CORPUSCULAR HEMOGLOBIN 30.7 pg (28.0-32.0); MEAN CORPUSCULAR VOLUME 91.8 fL (81.0-99.0); MEAN PLATELET VOLUME 7.9 fl (7.4-10.4); MONOCYTES % 5.8 % (2.0-8.0); NEUTROPHILS % 83.5 % (40.0-76.0); PLATELET 215 x1000/uL (130-400); RED BLOOD CELL COUNT 4.43 mill/uL (4.2-5.4); RED CELL DISTRIBUTION WIDTH 15.4 % (11.6-14.6)
[2022-03-18] MEDS: PANTOPRAZOLE SODIUM 40 MG/VIAL IV SCH ×2 (09:16→16:35)
[2022-03-18] MEDS: AMLODIPINE 10MG TABLET PO SCH (09:18)
[2022-03-18] MEDS: SODIUM CHLORIDE 0.45% 1,000 ML IV SCH (11:26)
[2022-03-18] MEDS: CEFTRIAXONE 1,000 MG in DEXTROSE 5% WATER 50 ML IV SCH (13:22)
[2022-03-18] MEDS: MORPHINE SULFATE 2 MG/ML CPJ (NOT FOR IM USE) IV PRN (16:35)
[2022-03-19] VITALS: BP 126/66
[2022-03-19] MEDS: METRONIDAZOLE 500 MG PREMIX 100 ML IV SCH ×3 (03:40→21:22)
[2022-03-19] MEDS: SODIUM CHLORIDE 0.45% 1,000 ML IV SCH ×2 (03:42→21:22)
[2022-03-19 04:00] VITALS: BP 152/69
[2022-03-19 08:06] LABS: BASOPHILS % 0.3 % (0.0-2.0); EOSINOPHILS % 1.5 % (0.0-5.0); LYMPHOCYTES % 10.8 % (20.0-50.0); MEAN CORPUSCULAR HEMOGLOBIN 30.5 pg (28.0-32.0); MEAN CORPUSCULAR VOLUME 89.9 fL (81.0-99.0); MEAN PLATELET VOLUME 7.3 fl (7.4-10.4); MONOCYTES % 4.6 % (2.0-8.0); NEUTROPHILS % 82.8 % (40.0-76.0); PLATELET 219 x1000/uL (130-400); RED BLOOD CELL COUNT 3.69 mill/uL (4.2-5.4); RED CELL DISTRIBUTION WIDTH 15.4 % (11.6-14.6)
[2022-03-19 08:32] LABS: HEMATOCRIT. 33.1 % (36.0-48.0); HEMOGLOBIN. 11.3 g/dL (12.0-16.0)
[2022-03-19 08:43] LABS: PHOSPHORUS 1.5 mg/dL (2.5-4.9)
[2022-03-19] MEDS ORDERED: POTASSIUM CHLORIDE 20MEQ/PACKET PO NR (09:00)
[2022-03-19] MEDS ORDERED: POTASSIUM CHLORIDE 20MEQ TABLET SR PO ONE (09:15)
[2022-03-19] MEDS: PANTOPRAZOLE SODIUM 40 MG/VIAL IV SCH ×2 (09:38→16:55)
[2022-03-19] MEDS: AMLODIPINE 10MG TABLET PO SCH (09:39)
[2022-03-19 12:00] VITALS: BP 122/64
[2022-03-19] MEDS: CEFTRIAXONE 1,000 MG in DEXTROSE 5% WATER 50 ML IV SCH (13:49)
[2022-03-19 16:00] VITALS: BP 105/69
[2022-03-19] MEDS ORDERED: POTASSIUM-SODIUM PHOSPHATE POWDER PACKET PO NR (18:00)
[2022-03-19 20:00] VITALS: BP 135/63
[2022-03-20] VITALS (7 sets, daily range): BP systolic 109–136; BP diastolic 63–72
[2022-03-20] MEDS: METRONIDAZOLE 500 MG PREMIX 100 ML IV SCH ×2 (03:52→12:15)
[2022-03-20 06:04] LABS: PHOSPHORUS 2.2 mg/dL (2.5-4.9)
[2022-03-20 06:06] LABS: BASOPHILS % 0.2 % (0.0-2.0); EOSINOPHILS % 0.7 % (0.0-5.0); HEMATOCRIT. 26.3 % (36.0-48.0); HEMOGLOBIN. 8.8 g/dL (12.0-16.0); LYMPHOCYTES % 8.1 % (20.0-50.0); MEAN CORPUSCULAR VOLUME 92.5 fL (81.0-99.0); MEAN PLATELET VOLUME 7.3 fl (7.4-10.4); MONOCYTES % 5.1 % (2.0-8.0); NEUTROPHILS % 85.9 % (40.0-76.0); PLATELET 208 x1000/uL (130-400); RED BLOOD CELL COUNT 2.84 mill/uL (4.2-5.4); RED CELL DISTRIBUTION WIDTH 15.4 % (11.6-14.6)
[2022-03-20] MEDS: PANTOPRAZOLE SODIUM 40 MG/VIAL IV SCH ×2 (09:08→17:00)
[2022-03-20] MEDS: AMLODIPINE 10MG TABLET PO SCH (09:09)
[2022-03-20] MEDS: CEFTRIAXONE 1,000 MG in DEXTROSE 5% WATER 50 ML IV SCH (13:55)
[2022-03-20] MEDS: SODIUM CHLORIDE 0.45% 1,000 ML IV SCH (15:00)
[2022-03-20] MEDS ORDERED: METRONIDAZOLE 500MG TABLET PO SCH (18:00)
== END 2022-03-20 23:50 | DRG 377 ==
LOC: ER 20:43 → MICUSO 23:51 → EDBEDREQ 03-16 00:16 → 8WST 03-16 20:37 → MICUSO 03-17 23:20 → 7WST 03-18 17:16
PROVIDERS: ADMIT Family Medicine Adult Medicine; ATTEND Family Medicine Adult Medicine
PROC: 02HV33Z Insertion of Infusion Device into Superior Vena Cava, Percutaneous Approach (ICD-10-PCS; principal; 2022-03-18)
PROC: B548ZZA Ultrasonography of Superior Vena Cava, Guidance (ICD-10-PCS; 2022-03-18)
PROC: 30233N1 Transfusion of Nonautologous Red Blood Cells into Peripheral Vein, Percutaneous Approach (ICD-10-PCS; 2022-03-18)
DX: K57.33 Diverticulitis of large intestine without perforation or abscess with bleeding (principal); G82.50 Quadriplegia, unspecified; G93.41 Metabolic encephalopathy; N17.0 Acute kidney failure with tubular necrosis; I21.4 Non-ST elevation (NSTEMI) myocardial infarction; N39.0 Urinary tract infection, site not specified; E46 Unspecified protein-calorie malnutrition; R57.9 Shock, unspecified; Z68.1 Body mass index [BMI] 19.9 or less, adult; L89.159 Pressure ulcer of sacral region, unspecified stage; E86.9 Volume depletion, unspecified; R62.7 Adult failure to thrive; J44.9 Chronic obstructive pulmonary disease, unspecified; N32.89 Other specified disorders of bladder; H91.90 Unspecified hearing loss, unspecified ear; I49.3 Ventricular premature depolarization; D64.9 Anemia, unspecified; E78.5 Hyperlipidemia, unspecified; E83.52 Hypercalcemia; R26.9 Unspecified abnormalities of gait and mobility; Z91.14 Patient's other noncompliance with medication regimen; Z86.73 Personal history of transient ischemic attack (TIA), and cerebral infarction without residual deficits; Z96.642 Presence of left artificial hip joint; Z91.018 Allergy to other foods; Z82.49 Family history of ischemic heart disease and other diseases of the circulatory system; N93.9 Abnormal uterine and vaginal bleeding, unspecified
CPT/HCPCS: 36415; 36573; 71045; 74177; 76700; 76770; 78278; 80048; 80053; 80061; 80076; 80305; 80320; 81003; 82140; 82378; 82550; 82607; 82728; 82746; 83540; 83550; 83605; 83735; 83880; 84100; 84443; 84484; 85018; 85025; 85044; 85384; 86850; 86900; 86920; 93005; 93306; 93880; 93970; 97162; 97166; 99291; A6261; A9560; C1725; C9113; J0696; J2270; J3480; J3490; J7030; J7060; P9016; Q9967; G0480

== ENCOUNTER 2022-03-20 23:42 | Inpatient (IN) | payer MEDICARE, OTHER ==
[~2022-03-20] VITALS: Ht 157.5 cm; Wt 29.9 kg
[2022-03-20 23:00] VITALS: BP 143/69
[~2022-03-20 23:42] MED LIST: ALPR-340 PO; DOCU-347 PO; ERGO1250 PO; LISI20TA31 PO; LORA10TA7 PO; OMEP20TA23 PO; SIMV-43 PO
[2022-03-20 23:45] VITALS: BP 143/69
[2022-03-21] MEDS ORDERED: IPRATROPIUM/ALBUTEROL 0.5-3(2.5)MG/3ML NEB HHN PRN (00:45)
[2022-03-21] MEDS ORDERED: CLONIDINE 0.1MG TABLET PO PRN (00:45)
[2022-03-21] MEDS ORDERED: NALOXONE HCL 0.4 MG/ML 1ML VIAL IV PRN (00:45)
[2022-03-21] MEDS ORDERED: DOCUSATE SODIUM 100MG CAPSULE PO PRN (00:45)
[2022-03-21] MEDS ORDERED: GUAIFENESIN 200MG/10ML SUGAR FREE UDC PO PRN (00:45)
[2022-03-21] MEDS ORDERED: ACETAMINOPHEN 325MG TABLET PO PRN ×2 (00:45)
[2022-03-21] MEDS ORDERED: ACETAMINOPHEN 650MG SUPP PR PRN ×2 (00:45)
[2022-03-21] MEDS ORDERED: ONDANSETRON HCL 4MG/2ML INJ IV PRN (00:45)
[2022-03-21] MEDS ORDERED: MAGNESIUM/ALUMINUM HYDROXIDE/SIMETHICONE 30ML UDC PO PRN (00:45)
[2022-03-21] MEDS ORDERED: MORPHINE SULFATE 2 MG/ML CPJ (NOT FOR IM USE) IV PRN (00:45)
[2022-03-21] MEDS: SODIUM CHLORIDE 0.45% 1,000 ML IV SCH ×2 (04:00→18:22)
[2022-03-21 06:33] LABS: BASOPHILS % 0.4 % (0.0-2.0); EOSINOPHILS % 0.7 % (0.0-5.0); HEMOGLOBIN. 8.7 g/dL (12.0-16.0); LYMPHOCYTES % 8.9 % (20.0-50.0); MEAN CORPUSCULAR HEMOGLOBIN 31.9 pg (28.0-32.0); MEAN CORPUSCULAR VOLUME 91.4 fL (81.0-99.0); MEAN PLATELET VOLUME 7.1 fl (7.4-10.4); MONOCYTES % 5.4 % (2.0-8.0); NEUTROPHILS % 84.6 % (40.0-76.0); PLATELET 216 x1000/uL (130-400); RED BLOOD CELL COUNT 2.73 mill/uL (4.2-5.4); RED CELL DISTRIBUTION WIDTH 15.1 % (11.6-14.6)
[2022-03-21] MEDS: METRONIDAZOLE 500MG TABLET PO SCH ×2 (06:45→18:21)
[2022-03-21 06:53] LABS: CHLORIDE 109 mEq/L (98-107)
[2022-03-21 08:00] VITALS: BP 129/67
[2022-03-21] MEDS: PANTOPRAZOLE SODIUM 40 MG/VIAL IV SCH ×2 (10:49→18:21)
[2022-03-21] MEDS: AMLODIPINE 10MG TABLET PO SCH (10:50)
[2022-03-21 20:00] VITALS: BP 133/58
[2022-03-22] MEDS: METRONIDAZOLE 500MG TABLET PO SCH (05:30)
[2022-03-22 06:00] LABS: BASOPHILS % 0.4 % (0.0-2.0); EOSINOPHILS % 0.4 % (0.0-5.0); HEMATOCRIT. 24.7 % (36.0-48.0); HEMOGLOBIN. 8.4 g/dL (12.0-16.0); LYMPHOCYTES % 8.4 % (20.0-50.0); MEAN CORPUSCULAR HEMOGLOBIN 31.6 pg (28.0-32.0); MEAN CORPUSCULAR VOLUME 92.5 fL (81.0-99.0); MONOCYTES % 4.9 % (2.0-8.0); NEUTROPHILS % 85.9 % (40.0-76.0); PLATELET 246 x1000/uL (130-400); RED BLOOD CELL COUNT 2.67 mill/uL (4.2-5.4)
[2022-03-22 06:09] LABS: CHLORIDE 109 mEq/L (98-107)
[2022-03-22 06:26] LABS: FERRITIN 381 ng/mL (10-291)
[2022-03-22 06:27] LABS: TOTAL IRON BINDING CAPACITY 184 ug/dL (250-450)
[2022-03-22 06:37] LABS: VITAMIN B12 SERUM 1513 pg/mL (211-911)
[2022-03-22 06:39] LABS: FOLIC ACID (FOLATE) SERUM > 20.00 ng/mL (>5.38)
[2022-03-22 08:00] VITALS: BP 125/60
[2022-03-22] MEDS: PANTOPRAZOLE SODIUM 40 MG/VIAL IV SCH ×2 (09:51→18:07)
[2022-03-22] MEDS: AMLODIPINE 10MG TABLET PO SCH (09:51)
[2022-03-22] MEDS: SODIUM CHLORIDE 0.45% 1,000 ML IV SCH (10:54)
[2022-03-22] MEDS: ASCORBIC ACID 500 MG TABLET PO SCH (13:31)
[2022-03-22] MEDS: FERROUS SULFATE 325MG TABLET PO SCH ×2 (13:31→18:07)
[2022-03-22 20:23] VITALS: BP 122/44
[2022-03-22 21:44] LABS: CLARITY URINE CLEAR (CLEAR); COLOR URINE YELLOW (YELLOW); KETONES URINE 1+ (NEGATIVE); LEUKOCYTE ESTERASE URINE TRACE (NEGATIVE); NITRITE URINE NEGATIVE (NEGATIVE); OCCULT BLOOD URINE NEGATIVE (NEGATIVE); PROTEIN URINE TRACE (NEGATIVE); SPECIFIC GRAVITY URINE 1.013 (1.005-1.030); UROBILINOGEN URINE 0.2 E.U./dL (0.2-1.0)
[2022-03-23] MEDS: SODIUM CHLORIDE 0.45% 1,000 ML IV SCH (02:45)
[2022-03-23 06:14] LABS: BASOPHILS % 0.4 % (0.0-2.0); EOSINOPHILS % 0.5 % (0.0-5.0); HEMATOCRIT. 22.5 % (36.0-48.0); HEMOGLOBIN. 7.8 g/dL (12.0-16.0); LYMPHOCYTES % 8.2 % (20.0-50.0); MEAN CORPUSCULAR HEMOGLOBIN 32.3 pg (28.0-32.0); MEAN PLATELET VOLUME 7.1 fl (7.4-10.4); MONOCYTES % 5.2 % (2.0-8.0); NEUTROPHILS % 85.7 % (40.0-76.0); PLATELET 268 x1000/uL (130-400); RED BLOOD CELL COUNT 2.43 mill/uL (4.2-5.4); RED CELL DISTRIBUTION WIDTH 15.3 % (11.6-14.6)
[2022-03-23 08:00] VITALS: BP 156/67
[2022-03-23] MEDS: AMLODIPINE 10MG TABLET PO SCH (09:39)
[2022-03-23] MEDS: FERROUS SULFATE 325MG TABLET PO SCH ×3 (09:39→18:03)
[2022-03-23] MEDS: CITRIC ACID/SODIUM CITRATE SOLN 30ML UDC PO SCH ×3 (09:39→18:03)
[2022-03-23] MEDS: ASCORBIC ACID 500 MG TABLET PO SCH (09:40)
[2022-03-23] MEDS: PANTOPRAZOLE SODIUM 40 MG/VIAL IV SCH ×2 (09:40→18:03)
[2022-03-23] MEDS ORDERED: CEFTRIAXONE 1 G PREMIX 50 ML IV SCH (10:00)
[2022-03-23] MEDS ORDERED: CEFTRIAXONE 1,000 MG in DEXTROSE 5% WATER 50 ML IV SCH (12:00)
[2022-03-23] MEDS: METRONIDAZOLE 500MG TABLET PO SCH ×2 (13:44→20:34)
[2022-03-23] MEDS: SODIUM CHLORIDE 0.9% 1,000 ML IV SCH ×2 (15:35→21:47)
[2022-03-23 17:00] VITALS: BP_SYST 114; BP_SYST 115; BP_SYST 99; BP_DIAS 56; BP_DIAS 57; BP_DIAS 59
[2022-03-23 20:19] VITALS: BP 131/63
[2022-03-24 06:18] LABS: BASOPHILS % 0.5 % (0.0-2.0); EOSINOPHILS % 0.6 % (0.0-5.0); HEMATOCRIT. 24.3 % (36.0-48.0); HEMOGLOBIN. 8.4 g/dL (12.0-16.0); LYMPHOCYTES % 8.7 % (20.0-50.0); MEAN CORPUSCULAR HEMOGLOBIN 32.1 pg (28.0-32.0); MEAN CORPUSCULAR VOLUME 92.5 fL (81.0-99.0); MONOCYTES % 5.4 % (2.0-8.0); NEUTROPHILS % 84.8 % (40.0-76.0); PLATELET 273 x1000/uL (130-400); RED BLOOD CELL COUNT 2.62 mill/uL (4.2-5.4); RED CELL DISTRIBUTION WIDTH 15.5 % (11.6-14.6)
[2022-03-24] MEDS ORDERED: POTASSIUM CHLORIDE 20MEQ TABLET SR PO NR (06:45)
[2022-03-24] MEDS: METRONIDAZOLE 500MG TABLET PO SCH ×3 (07:01→21:59)
[2022-03-24 08:00] VITALS: BP_SYST 102; BP_SYST 138; BP_DIAS 63; BP_DIAS 67
[2022-03-24] MEDS: FERROUS SULFATE 325MG TABLET PO SCH ×3 (10:26→18:21)
[2022-03-24] MEDS: CITRIC ACID/SODIUM CITRATE SOLN 30ML UDC PO SCH ×3 (10:26→18:21)
[2022-03-24] MEDS: ASCORBIC ACID 500 MG TABLET PO SCH (10:26)
[2022-03-24] MEDS ORDERED: LEVOFLOXACIN 500MG TABLET PO SCH (11:00)
[2022-03-24] MEDS: PANTOPRAZOLE SODIUM 40 MG/VIAL IV SCH ×2 (11:02→19:40)
[2022-03-24] MEDS: SODIUM CHLORIDE 0.9% 1,000 ML IV SCH (19:43)
[2022-03-24 20:04] VITALS: BP 139/79
[2022-03-25 06:10] LABS: HEMATOCRIT. 24.7 % (36.0-48.0); HEMOGLOBIN. 8.3 g/dL (12.0-16.0); MEAN CORPUSCULAR HEMOGLOBIN 31.3 pg (28.0-32.0); MEAN CORPUSCULAR VOLUME 93.2 fL (81.0-99.0); PLATELET 300 x1000/uL (130-400); RED BLOOD CELL COUNT 2.65 mill/uL (4.2-5.4)
[2022-03-25] MEDS: METRONIDAZOLE 500MG TABLET PO SCH ×3 (06:47→21:38)
[2022-03-25] MEDS: SODIUM CHLORIDE 0.9% 1,000 ML IV SCH ×2 (06:47→10:42)
[2022-03-25] MEDS ORDERED: POTASSIUM CHLORIDE 20MEQ TABLET SR PO NR (08:00)
[2022-03-25 09:00] VITALS: BP 154/75
[2022-03-25] MEDS: CITRIC ACID/SODIUM CITRATE SOLN 30ML UDC PO SCH ×3 (09:01→16:48)
[2022-03-25] MEDS: ASCORBIC ACID 500 MG TABLET PO SCH (09:01)
[2022-03-25] MEDS: FERROUS SULFATE 325MG TABLET PO SCH ×3 (09:01→16:48)
[2022-03-25 09:57] LABS: PLATELET ESTIMATE NORMAL
[2022-03-25] MEDS: PANTOPRAZOLE SODIUM 40 MG/VIAL IV SCH ×2 (10:41→16:48)
[2022-03-25] MEDS: LEVOFLOXACIN 250MG TABLET PO SCH (10:43)
[2022-03-25 20:00] VITALS: BP 151/76
[2022-03-26] MEDS: METRONIDAZOLE 500MG TABLET PO SCH ×3 (05:41→22:12)
[2022-03-26 06:46] LABS: BASOPHILS % 0.3 % (0.0-2.0); EOSINOPHILS % 0.3 % (0.0-5.0); HEMATOCRIT. 24.6 % (36.0-48.0); HEMOGLOBIN. 8.4 g/dL (12.0-16.0); LYMPHOCYTES % 7.8 % (20.0-50.0); MEAN CORPUSCULAR HEMOGLOBIN 31.9 pg (28.0-32.0); MEAN CORPUSCULAR VOLUME 93.3 fL (81.0-99.0); MEAN PLATELET VOLUME 6.8 fl (7.4-10.4); MONOCYTES % 4.4 % (2.0-8.0); NEUTROPHILS % 87.2 % (40.0-76.0); PLATELET 278 x1000/uL (130-400); RED BLOOD CELL COUNT 2.63 mill/uL (4.2-5.4); RED CELL DISTRIBUTION WIDTH 16.1 % (11.6-14.6)
[2022-03-26 07:24] LABS: PHOSPHORUS 0.8 mg/dL (2.5-4.9)
[2022-03-26] MEDS ORDERED: POTASSIUM CHLORIDE 20MEQ TABLET SR PO NR (07:30)
[2022-03-26 08:00] VITALS: BP 155/81
[2022-03-26] MEDS: FERROUS SULFATE 325MG TABLET PO SCH ×3 (09:45→18:40)
[2022-03-26] MEDS: CITRIC ACID/SODIUM CITRATE SOLN 30ML UDC PO SCH ×3 (09:45→18:40)
[2022-03-26] MEDS: ASCORBIC ACID 500 MG TABLET PO SCH (09:45)
[2022-03-26] MEDS ORDERED: MAGNESIUM 1 G PREMIX 100 ML IV NR (10:00)
[2022-03-26] MEDS: PANTOPRAZOLE SODIUM 40 MG/VIAL IV SCH ×2 (10:00→18:39)
[2022-03-26] MEDS: LEVOFLOXACIN 250MG TABLET PO SCH (13:56)
[2022-03-26 14:39] VITALS: BP_SYST 137; BP_SYST 143; BP_DIAS 75; BP_DIAS 77
[2022-03-26] MEDS ORDERED: POTASSIUM PHOS,M-BASIC-D-BASIC 20 MMOL in DEXT 5% WATER 250 ML IV SCH (16:00)
[2022-03-26 20:00] VITALS: BP 157/87
[2022-03-27 06:00] LABS: CHLORIDE 110 mEq/L (98-107)
[2022-03-27] MEDS: METRONIDAZOLE 500MG TABLET PO SCH ×3 (06:04→21:56)
[2022-03-27 06:08] LABS: PHOSPHORUS 2.2 mg/dL (2.5-4.9)
[2022-03-27 06:12] LABS: BASOPHILS % 0.5 % (0.0-2.0); EOSINOPHILS % 0.6 % (0.0-5.0); HEMATOCRIT. 23.4 % (36.0-48.0); LYMPHOCYTES % 9.2 % (20.0-50.0); MEAN CORPUSCULAR HEMOGLOBIN 32.1 pg (28.0-32.0); MEAN CORPUSCULAR VOLUME 93.9 fL (81.0-99.0); MEAN PLATELET VOLUME 6.9 fl (7.4-10.4); MONOCYTES % 4.6 % (2.0-8.0); NEUTROPHILS % 85.1 % (40.0-76.0); PLATELET 271 x1000/uL (130-400); RED BLOOD CELL COUNT 2.49 mill/uL (4.2-5.4); RED CELL DISTRIBUTION WIDTH 17.1 % (11.6-14.6)
[2022-03-27 08:00] VITALS: BP 121/73
[2022-03-27] MEDS ORDERED: MAGNESIUM 2 G PREMIX 50 ML IV NR (10:00)
[2022-03-27] MEDS: ASCORBIC ACID 500 MG TABLET PO SCH (10:08)
[2022-03-27] MEDS: CITRIC ACID/SODIUM CITRATE SOLN 30ML UDC PO SCH (10:09)
[2022-03-27] MEDS: MEGESTROL ACETATE 400 MG/10 ML UDC PO SCH (10:09)
[2022-03-27] MEDS: FERROUS SULFATE 325MG TABLET PO SCH ×3 (10:09→17:07)
[2022-03-27] MEDS: PANTOPRAZOLE SODIUM 40 MG/VIAL IV SCH ×2 (10:29→18:36)
[2022-03-27] MEDS ORDERED: POTASSIUM-SODIUM PHOSPHATE POWDER PACKET PO SCH (10:30)
[2022-03-27] MEDS: LEVOFLOXACIN 250MG TABLET PO SCH (11:38)
[2022-03-27 15:30] VITALS: BP_SYST 119; BP_SYST 131; BP_DIAS 64; BP_DIAS 71
[2022-03-27 20:00] VITALS: BP 136/42
[2022-03-28] MEDS: METRONIDAZOLE 500MG TABLET PO SCH ×3 (06:58→21:00)
[2022-03-28 08:00] VITALS: BP 150/83
[2022-03-28] MEDS: ASCORBIC ACID 500 MG TABLET PO SCH (09:00)
[2022-03-28] MEDS: MEGESTROL ACETATE 400 MG/10 ML UDC PO SCH (10:40)
[2022-03-28] MEDS: LEVOFLOXACIN 250MG TABLET PO SCH (10:40)
[2022-03-28] MEDS: FERROUS SULFATE 325MG TABLET PO SCH ×3 (10:40→17:12)
[2022-03-28] MEDS: PANTOPRAZOLE SODIUM 40 MG/VIAL IV SCH ×2 (10:40→17:12)
[2022-03-28 16:42] LABS: BASOPHILS % 0.4 % (0.0-2.0); EOSINOPHILS % 0.7 % (0.0-5.0); HEMATOCRIT. 25.2 % (36.0-48.0); HEMOGLOBIN. 8.6 g/dL (12.0-16.0); LYMPHOCYTES % 8.7 % (20.0-50.0); MEAN CORPUSCULAR HEMOGLOBIN 31.6 pg (28.0-32.0); MEAN CORPUSCULAR VOLUME 93.1 fL (81.0-99.0); MEAN PLATELET VOLUME 6.8 fl (7.4-10.4); MONOCYTES % 3.8 % (2.0-8.0); NEUTROPHILS % 86.4 % (40.0-76.0); PLATELET 281 x1000/uL (130-400); RED BLOOD CELL COUNT 2.71 mill/uL (4.2-5.4); RED CELL DISTRIBUTION WIDTH 17.4 % (11.6-14.6)
[2022-03-28 20:00] VITALS: BP 158/89
[2022-03-28] MEDS ORDERED: POTASSIUM CHLORIDE 20MEQ TABLET SR PO NR (20:30)
[2022-03-29] MEDS: METRONIDAZOLE 500MG TABLET PO SCH ×2 (05:16→13:50)
[2022-03-29 08:00] VITALS: BP 155/90
[2022-03-29] MEDS: PANTOPRAZOLE SODIUM 40 MG/VIAL IV SCH ×2 (09:09→17:26)
[2022-03-29] MEDS: ASCORBIC ACID 500 MG TABLET PO SCH (09:09)
[2022-03-29] MEDS: FERROUS SULFATE 325MG TABLET PO SCH ×3 (09:09→17:26)
[2022-03-29] MEDS: MEGESTROL ACETATE 400 MG/10 ML UDC PO SCH (09:09)
[2022-03-29 11:05] LABS: BASOPHILS % 0.6 % (0.0-2.0); EOSINOPHILS % 0.2 % (0.0-5.0); HEMATOCRIT. 27.3 % (36.0-48.0); HEMOGLOBIN. 8.8 g/dL (12.0-16.0); LYMPHOCYTES % 8.1 % (20.0-50.0); MEAN CORPUSCULAR HEMOGLOBIN 31.9 pg (28.0-32.0); MEAN CORPUSCULAR VOLUME 98.9 fL (81.0-99.0); MEAN PLATELET VOLUME 7.7 fl (7.4-10.4); NEUTROPHILS % 87.1 % (40.0-76.0); PLATELET 169 x1000/uL (130-400); RED BLOOD CELL COUNT 2.76 mill/uL (4.2-5.4); RED CELL DISTRIBUTION WIDTH 19.3 % (11.6-14.6)
[2022-03-29] MEDS: LEVOFLOXACIN 250MG TABLET PO SCH (11:50)
[2022-03-29 20:00] VITALS: BP_SYST 128; BP_SYST 132; BP_DIAS 68; BP_DIAS 70
[2022-03-30 06:17] LABS: BASOPHILS % 0.7 % (0.0-2.0); EOSINOPHILS % 0.5 % (0.0-5.0); HEMATOCRIT. 24.7 % (36.0-48.0); HEMOGLOBIN. 8.4 g/dL (12.0-16.0); LYMPHOCYTES % 11.5 % (20.0-50.0); MEAN CORPUSCULAR HEMOGLOBIN 31.9 pg (28.0-32.0); MEAN CORPUSCULAR VOLUME 93.8 fL (81.0-99.0); MEAN PLATELET VOLUME 6.6 fl (7.4-10.4); MONOCYTES % 4.4 % (2.0-8.0); NEUTROPHILS % 82.9 % (40.0-76.0); PLATELET 262 x1000/uL (130-400); RED BLOOD CELL COUNT 2.63 mill/uL (4.2-5.4); RED CELL DISTRIBUTION WIDTH 18.3 % (11.6-14.6)
[2022-03-30 07:07] LABS: PHOSPHORUS 1.7 mg/dL (2.5-4.9)
[2022-03-30 08:00] VITALS: BP 154/90
[2022-03-30] MEDS: PANTOPRAZOLE SODIUM 40 MG/VIAL IV SCH ×2 (08:18→16:55)
[2022-03-30] MEDS: FERROUS SULFATE 325MG TABLET PO SCH ×3 (08:19→16:55)
[2022-03-30] MEDS: ASCORBIC ACID 500 MG TABLET PO SCH (08:19)
[2022-03-30] MEDS: MEGESTROL ACETATE 400 MG/10 ML UDC PO SCH (08:19)
[2022-03-30] MEDS ORDERED: POTASSIUM PHOS,M-BASIC-D-BASIC 10 MMOL in DEXT 5% WATER 246.6667 ML IV NR (13:00)
[2022-03-30 19:58] VITALS: BP 150/81
[2022-03-30 22:00] VITALS: BP 129/66
[2022-03-31 06:00] LABS: BASOPHILS % 0.7 % (0.0-2.0); EOSINOPHILS % 0.3 % (0.0-5.0); HEMATOCRIT. 26.6 % (36.0-48.0); LYMPHOCYTES % 16.7 % (20.0-50.0); MEAN CORPUSCULAR HEMOGLOBIN 32.1 pg (28.0-32.0); MEAN CORPUSCULAR VOLUME 94.4 fL (81.0-99.0); MEAN PLATELET VOLUME 6.6 fl (7.4-10.4); MONOCYTES % 5.6 % (2.0-8.0); NEUTROPHILS % 76.7 % (40.0-76.0); PLATELET 271 x1000/uL (130-400); RED BLOOD CELL COUNT 2.82 mill/uL (4.2-5.4); RED CELL DISTRIBUTION WIDTH 18.4 % (11.6-14.6)
[2022-03-31 06:35] LABS: PHOSPHORUS 2.4 mg/dL (2.5-4.9)
[2022-03-31 08:00] VITALS: BP 167/93
[2022-03-31] MEDS: PANTOPRAZOLE SODIUM 40 MG/VIAL IV SCH ×2 (09:00→16:21)
[2022-03-31] MEDS: ASCORBIC ACID 500 MG TABLET PO SCH (10:31)
[2022-03-31] MEDS: POTASSIUM-SODIUM PHOSPHATE POWDER PACKET PO SCH ×2 (10:31→18:17)
[2022-03-31] MEDS: FERROUS SULFATE 325MG TABLET PO SCH ×3 (10:31→18:18)
[2022-03-31] MEDS: MEGESTROL ACETATE 400 MG/10 ML UDC PO SCH (10:33)
[2022-03-31 20:22] VITALS: BP 121/66
[2022-04-01 08:00] VITALS: BP 167/81
[2022-04-01 09:00] VITALS: BP 167/81
[2022-04-01] MEDS: PANTOPRAZOLE SODIUM 40 MG/VIAL IV SCH ×2 (09:47→16:18)
[2022-04-01] MEDS: MEGESTROL ACETATE 400 MG/10 ML UDC PO SCH (09:47)
[2022-04-01] MEDS: FERROUS SULFATE 325MG TABLET PO SCH ×3 (09:47→16:18)
[2022-04-01] MEDS: ASCORBIC ACID 500 MG TABLET PO SCH (09:48)
[2022-04-01 12:44] LABS: BASOPHILS % 0.5 % (0.0-2.0); EOSINOPHILS % 0.7 % (0.0-5.0); HEMATOCRIT. 27.7 % (36.0-48.0); HEMOGLOBIN. 9.2 g/dL (12.0-16.0); LYMPHOCYTES % 13.8 % (20.0-50.0); MEAN CORPUSCULAR HEMOGLOBIN 31.9 pg (28.0-32.0); MEAN CORPUSCULAR VOLUME 96.4 fL (81.0-99.0); MEAN PLATELET VOLUME 6.9 fl (7.4-10.4); MONOCYTES % 5.3 % (2.0-8.0); NEUTROPHILS % 79.7 % (40.0-76.0); PLATELET 249 x1000/uL (130-400); RED BLOOD CELL COUNT 2.87 mill/uL (4.2-5.4); RED CELL DISTRIBUTION WIDTH 19.6 % (11.6-14.6)
[2022-04-01] MEDS: FLUDROCORTISONE ACETATE 0.1MG TABLET PO SCH (15:39)
[2022-04-01 20:00] VITALS: BP 139/73
[2022-04-02 06:37] LABS: BASOPHILS % 0.6 % (0.0-2.0); EOSINOPHILS % 1.3 % (0.0-5.0); HEMATOCRIT. 23.5 % (36.0-48.0); HEMOGLOBIN. 8.1 g/dL (12.0-16.0); LYMPHOCYTES % 18.6 % (20.0-50.0); MEAN CORPUSCULAR HEMOGLOBIN 32.4 pg (28.0-32.0); MEAN CORPUSCULAR VOLUME 94.5 fL (81.0-99.0); NEUTROPHILS % 72.5 % (40.0-76.0); PLATELET 244 x1000/uL (130-400); RED BLOOD CELL COUNT 2.49 mill/uL (4.2-5.4); RED CELL DISTRIBUTION WIDTH 19.1 % (11.6-14.6)
[2022-04-02 08:00] VITALS: BP 150/89
[2022-04-02] MEDS: FLUDROCORTISONE ACETATE 0.1MG TABLET PO SCH (08:00)
[2022-04-02] MEDS: MEGESTROL ACETATE 400 MG/10 ML UDC PO SCH (08:00)
[2022-04-02] MEDS: PANTOPRAZOLE SODIUM 40 MG/VIAL IV SCH ×2 (08:00→17:57)
[2022-04-02] MEDS: ASCORBIC ACID 500 MG TABLET PO SCH (08:01)
[2022-04-02] MEDS: FERROUS SULFATE 325MG TABLET PO SCH ×3 (08:01→17:00)
[2022-04-02] MEDS ORDERED: POTASSIUM CHLORIDE 20MEQ TABLET SR PO NR (09:00)
[2022-04-02 13:10] VITALS: BP_SYST 114; BP_SYST 123; BP_DIAS 69; BP_DIAS 75
[2022-04-02 20:00] VITALS: BP 127/70
[2022-04-02 22:11] LABS: HEMOGLOBIN 7.9 g/dL (12.0-16.0)
[2022-04-03 06:49] LABS: BASOPHILS % 0.8 % (0.0-2.0); EOSINOPHILS % 1.1 % (0.0-5.0); HEMATOCRIT. 21.9 % (36.0-48.0); HEMOGLOBIN. 7.5 g/dL (12.0-16.0); LYMPHOCYTES % 19.5 % (20.0-50.0); MEAN CORPUSCULAR HEMOGLOBIN 32.4 pg (28.0-32.0); MEAN CORPUSCULAR VOLUME 94.6 fL (81.0-99.0); MEAN PLATELET VOLUME 6.8 fl (7.4-10.4); MONOCYTES % 7.6 % (2.0-8.0); PLATELET 246 x1000/uL (130-400); RED BLOOD CELL COUNT 2.32 mill/uL (4.2-5.4); RED CELL DISTRIBUTION WIDTH 19.1 % (11.6-14.6)
[2022-04-03 08:00] VITALS: BP 155/78
[2022-04-03] MEDS: MEGESTROL ACETATE 400 MG/10 ML UDC PO SCH (08:06)
[2022-04-03] MEDS: PANTOPRAZOLE SODIUM 40 MG/VIAL IV SCH (08:06)
[2022-04-03] MEDS: FLUDROCORTISONE ACETATE 0.1MG TABLET PO SCH (08:06)
[2022-04-03] MEDS: FERROUS SULFATE 325MG TABLET PO SCH ×3 (08:06→17:04)
[2022-04-03] MEDS: ASCORBIC ACID 500 MG TABLET PO SCH (08:06)
[2022-04-03] MEDS ORDERED: POTASSIUM CHLORIDE 20MEQ TABLET SR PO SCH (09:15)
[2022-04-03 12:30] VITALS: BP 129/67
[2022-04-03 17:17] VITALS: BP 114/69
[2022-04-03 18:14] LABS: HEMOGLOBIN 8.3 g/dL (12.0-16.0)
[2022-04-03 19:59] VITALS: BP 126/72
[2022-04-03] MEDS: PANTOPRAZOLE 40MG DR TABLET PO SCH (20:44)
[2022-04-04 05:54] LABS: PHOSPHORUS 2.5 mg/dL (2.5-4.9)
[2022-04-04 06:20] LABS: BASOPHILS % 0.9 % (0.0-2.0); EOSINOPHILS % 1.2 % (0.0-5.0); HEMATOCRIT. 22.7 % (36.0-48.0); HEMOGLOBIN. 7.6 g/dL (12.0-16.0); LYMPHOCYTES % 18.1 % (20.0-50.0); MEAN CORPUSCULAR HEMOGLOBIN 31.7 pg (28.0-32.0); MEAN CORPUSCULAR VOLUME 95.1 fL (81.0-99.0); MEAN PLATELET VOLUME 6.9 fl (7.4-10.4); MONOCYTES % 6.7 % (2.0-8.0); NEUTROPHILS % 73.1 % (40.0-76.0); PLATELET 264 x1000/uL (130-400); RED BLOOD CELL COUNT 2.39 mill/uL (4.2-5.4); RED CELL DISTRIBUTION WIDTH 19.4 % (11.6-14.6)
[2022-04-04] MEDS ORDERED: POTASSIUM CHLORIDE 20MEQ TABLET SR PO NR (07:30)
[2022-04-04] MEDS: FERROUS SULFATE 325MG TABLET PO SCH ×2 (08:07→13:21)
[2022-04-04] MEDS: PANTOPRAZOLE 40MG DR TABLET PO SCH (08:07)
[2022-04-04] MEDS: MEGESTROL ACETATE 400 MG/10 ML UDC PO SCH (08:07)
[2022-04-04] MEDS: ASCORBIC ACID 500 MG TABLET PO SCH (08:07)
[2022-04-04 09:00] VITALS: BP 153/73
[2022-04-04] MEDS ORDERED: FLUDROCORTISONE ACETATE 0.1MG TABLET PO SCH (09:00)
[2022-04-04 10:30] VITALS: BP 153/73
[2022-04-04 11:59] VITALS: BP 117/63
[2022-04-04 14:07] LABS: 25-HYDROXY VITAMIN D3 141 ng/mL (.)
== END 2022-04-04 14:35 | DRG 70 ==
PROVIDERS: ADMIT Physical Medicine & Rehabilitation Spinal Cord Injury Medicine; ATTEND Family Medicine Adult Medicine
DX: G93.41 Metabolic encephalopathy (principal); A41.9 Sepsis, unspecified organism; G82.50 Quadriplegia, unspecified; I21.4 Non-ST elevation (NSTEMI) myocardial infarction; E46 Unspecified protein-calorie malnutrition; E87.2 Acidosis; N17.9 Acute kidney failure, unspecified; N39.0 Urinary tract infection, site not specified; D64.9 Anemia, unspecified; E78.5 Hyperlipidemia, unspecified; E83.39 Other disorders of phosphorus metabolism; E83.42 Hypomagnesemia; E86.9 Volume depletion, unspecified; E87.6 Hypokalemia; F03.90 Unspecified dementia, unspecified severity, without behavioral disturbance, psychotic disturbance, mood disturbance, and anxiety; I12.9 Hypertensive chronic kidney disease with stage 1 through stage 4 chronic kidney disease, or unspecified chronic kidney disease; I95.1 Orthostatic hypotension; J44.9 Chronic obstructive pulmonary disease, unspecified; K57.30 Diverticulosis of large intestine without perforation or abscess without bleeding; N18.9 Chronic kidney disease, unspecified; R13.10 Dysphagia, unspecified; R62.7 Adult failure to thrive; Z82.49 Family history of ischemic heart disease and other diseases of the circulatory system; Z96.642 Presence of left artificial hip joint; Z86.79 Personal history of other diseases of the circulatory system; Z86.73 Personal history of transient ischemic attack (TIA), and cerebral infarction without residual deficits; F39 Unspecified mood [affective] disorder; K80.20 Calculus of gallbladder without cholecystitis without obstruction; L89.159 Pressure ulcer of sacral region, unspecified stage; Z87.81 Personal history of (healed) traumatic fracture
CPT/HCPCS: 36415; 80048; 80053; 80076; 81003; 82140; 82270; 82306; 82607; 82728; 82746; 83540; 83550; 83735; 84100; 84134; 84443; 85018; 85025; 85044; 87426; 92523; 92610; 93970; 97110; 97162; 97166; 97530; 97535; A6261; C9113; J0696; J3475; J3490; J7030; J7060; L1830; A4315; A5200

== ENCOUNTER 2022-06-10 00:36 | Emergency (ER) | payer MEDICARE, OTHER ==
[~2022-06-10] VITALS: Ht 157.5 cm; Wt 50.0 kg
[2022-06-10 03:38] LABS: BASOPHILS % 0.6 % (0.0-2.0); EOSINOPHILS % 1.6 % (0.0-5.0); MEAN CORPUSCULAR HEMOGLOBIN 32.1 pg (28.0-32.0); MEAN CORPUSCULAR VOLUME 93.7 fL (81.0-99.0); MEAN PLATELET VOLUME 6.7 fl (7.4-10.4); MONOCYTES % 6.9 % (2.0-8.0); NEUTROPHILS % 69.9 % (40.0-76.0); PLATELET 354 x1000/uL (130-400); RED BLOOD CELL COUNT 3.41 mill/uL (4.2-5.4); RED CELL DISTRIBUTION WIDTH 13.1 % (11.6-14.6)
[2022-06-10 03:47] LABS: CHLORIDE 109 mEq/L (98-107)
[2022-06-10 15:58] VITALS: BP 167/87
== END 2022-06-10 16:00 ==
LOC: ER 00:36
DX: Z04.89 Encounter for examination and observation for other specified reasons (principal); I10 Essential (primary) hypertension; E78.00 Pure hypercholesterolemia, unspecified; R51.9 Headache, unspecified; Z86.73 Personal history of transient ischemic attack (TIA), and cerebral infarction without residual deficits; Z87.19 Personal history of other diseases of the digestive system; Z91.018 Allergy to other foods; W01.0XXA Fall on same level from slipping, tripping and stumbling without subsequent striking against object, initial encounter; Y93.89 Activity, other specified; Y92.128 Other place in nursing home as the place of occurrence of the external cause
CPT/HCPCS: 36415; 71045; 72170; 80053; 84484; 85025; 93005; 99285